=== PATIENT | male | born 1945 | race Caucasian/White ===

== ENCOUNTER → 2016-10-10 | Outpatient (CLI) | payer MEDICARE ==
[~2016-10-10] MED LIST: ACID1TAB; ASP81TEC PO; ENXP40I.4; GLMP4T; LISI2.5T85 PO; LRT10T PO; METF500T PO; METO25TA60 PO; [UNRECOGNIZED DRUG - CODE]
== END ==
LOC: LAB 08:30
PROVIDERS: ATTEND Family Medicine
DX: R19.7 Diarrhea, unspecified (principal)
CPT/HCPCS: 87507

== ENCOUNTER → 2016-11-08 | Outpatient (CLI) | payer MEDICARE | LOC: LAB 10:26 | PROVIDERS: ATTEND Family Medicine | DX: R19.7 Diarrhea, unspecified (principal) | CPT/HCPCS: 87507 ==

== ENCOUNTER → 2016-11-20 | Outpatient (CLI) | payer MEDICARE | LOC: LAB 08:04 | PROVIDERS: ATTEND Family Medicine | DX: R19.7 Diarrhea, unspecified (principal) | CPT/HCPCS: 87507 ==